=== PATIENT | male | born 1935 | race Caucasian/White ===

== ENCOUNTER 2020-02-11 11:58 | Outpatient (CLI) | payer MEDICARE, BC ==
[2020-02-11 12:31] LABS: ALBUMIN 4.2 g/dL (3.2-5.5); ALBUMIN/GLOBULIN RATIO 1.9 (1.0-2.2); BILIRUBIN,TOTAL 0.7 mg/dL (0.2-1.0); CALCIUM 9.2 mg/dL (8.5-10.3); CREATININE 1.2 mg/dL (0.6-1.2); TOTAL PROTEIN 6.4 g/dL (6.7-8.2)
[2020-02-11] MEDS ORDERED: IOVERSOL 320 100 ML VIAL IVP ONE ×2 (13:15→13:49)
--- NOTE | 2020-02-11 15:34 | CT Report ---
PROCEDURE: CHEST W INDICATIONS: L LOWER LOBE LUNG MASS CONTRAST: IV CONTRAST: Optiray 320 ml: 100 PO CONTRAST: *NO PO CONTRAST TECHNIQUE: After the administration of intravenous contrast, 5 mm thick sections acquired from the pulmonary api coleman to the posterior costophrenic angles. 7 mm thick coronal MIP reformats were acquired. For radia tion dose reduction, the following was used: automated exposure control, adjustment of mA and/or kV according to patient size. COMPARISON: None. FINDINGS: Image quality: Excellent. Lungs and pleura: No acute consolidation. There is mild ill-defined tree-in-bud opacities involving t he left lower lobe which could be infectious/inflammatory versus low-grade aspiration. Diffuse peribr onchial cuffing suggestive of nonspecific bronchitis and/or reactive airways disease. 3 mm subpleural left lower lobe pulmonary nodule on image 218/4. Additional similar-appearing subpleural nodule invo lving the anterior left upper lobe measuring 5 mm. Ill-defined left upper lobe pulmonary nodule measuring approximately 1.0 cm. No pleural effusions or pneumothorax. Mediastinum: Heart size is normal. Coronary artery calcifications. No pericardial effusion. Nonspeci fic 9 mm right hilar lymph node on image 31/3. Thoracic aorta and central pulmonary arteries are nor mal in size. Esophagus is normal in caliber. No hiatal hernia. Bones and chest wall: No suspicious bony lesions. No vertebral body compression fractures. No axil buddy or supraclavicular adenopathy by size criteria. Thyroid gland not well seen possibly atrophic. Incidental cholelithiasis. Subcentimeter renal foci which are statistically cysts, however too to ad racterize accurately and therefore technically indeterminate. Hepatic steatosis. IMPRESSION: Dominant left upper lobe pulmonary nodule measuring 1.0 cm is indeterminate however warrants continue d follow-up/surveillance since early neoplasm cannot be excluded. At minimum, chest CT in 3 months re commended. Also, a PET CT could be considered to assess malignant versus benign etiology. Additional smaller subcentimeter subpleural pulmonary nodules which warrant continued surveillance. Ill-defined small tree-in-bud nodularity involving the left lower lobe which could be infection/infla mmatory versus low-grade aspiration. Additional chronic and incidental findings as above. Reviewed by: Maksim Leung MD on 02/11/2020 3:33 PM PST Approved by: Maksim Leung MD on 02/11/2020 3:33 PM PST Station ID: [id number]
== END 2020-02-11 11:59 | disposition home or self-care (01) ==
LOC: LAB 11:58 → DI 11:59
PROVIDERS: ATTEND Family Medicine
DX: J98.4 Other disorders of lung (principal); R91.1 Solitary pulmonary nodule; Z86.73 Personal history of transient ischemic attack (TIA), and cerebral infarction without residual deficits; K44.9 Diaphragmatic hernia without obstruction or gangrene; K21.9 Gastro-esophageal reflux disease without esophagitis; D64.9 Anemia, unspecified; E03.9 Hypothyroidism, unspecified
CPT/HCPCS: 36415; 71260; 80053; Q9967

== ENCOUNTER 2020-03-11 08:57 | Outpatient (CLI) | payer MEDICARE, BC ==
[2020-03-11 11:50] LABS: BASOPHILS % (AUTO) 0.1 %; EOSINOPHILS # (AUTO) 0.3 10^3/uL (0.0-0.7); EOSINOPHILS % (AUTO) 3.2 %; LYMPHOCYTES # (AUTO) 1.6 10^3/uL (1.5-3.5); MEAN CORPUSCULAR HEMOGLOBIN 27.8 pg (27.0-31.0); MEAN CORPUSCULAR HGB CONC 31.1 g/dL (32.0-36.0); MEAN CORPUSCULAR VOLUME 89.5 fL (80.0-94.0); MEAN PLATELET VOLUME 10.3 fL (7.4-11.4); MONOCYTES # (AUTO) 0.6 10^3/uL (0.0-1.0); MONOCYTES % (AUTO) 6.4 %; NEUTROPHILS # (AUTO) 6.3 10^3/uL (1.5-6.6); NEUTROPHILS % (AUTO) 71.8 %; PLT - PLATELET COUNT 235 10^3/uL (130-450); RED BLOOD COUNT 5.03 10^6/uL (4.70-6.10); RED CELL DISTRIBUTION WIDTH 13.9 % (12.0-15.0); WHITE BLOOD COUNT 8.7 x10^3/uL (4.8-10.8)
[2020-03-11 12:25] LABS: CHOL/HDL RATIO 3.1 (<5.0); CHOLESTEROL 121 mg/dL; HDL CHOLESTEROL 39 mg/dL; LDL CHOLESTEROL,CALCULATED 71 mg/dL; LDL/HDL RATIO 1.8 (<3.6); VLDL CHOLESTEROL 11 mg/dL
[2020-03-11 12:28] LABS: FREE T3 2.58 pg/mL (2.5-3.9); THYROID STIMULATING HORMONE 1.37 uIU/mL (0.34-5.60)
== END 2020-03-11 23:59 | disposition home or self-care (01) ==
LOC: LAB.WCP 08:57
PROVIDERS: ATTEND Family Medicine
DX: K21.9 Gastro-esophageal reflux disease without esophagitis (principal); K44.9 Diaphragmatic hernia without obstruction or gangrene; E03.9 Hypothyroidism, unspecified; D64.9 Anemia, unspecified; Z86.73 Personal history of transient ischemic attack (TIA), and cerebral infarction without residual deficits
CPT/HCPCS: 36415; 80061; 83721; 84153; 84439; 84443; 84481; 85025

== ENCOUNTER 2021-12-21 09:56 | Outpatient (CLI) | payer MEDICARE, BC ==
[2021-12-21 11:55] LABS: BASOPHILS % (AUTO) 0.1 %; EOSINOPHILS # (AUTO) 0.2 10^3/uL (0.0-0.7); EOSINOPHILS % (AUTO) 1.8 %; HCT - HEMATOCRIT 43.5 % (42.0-52.0); HGB - HEMOGLOBIN 13.5 g/dL (14.0-18.0); LYMPHOCYTES # (AUTO) 2.1 10^3/uL (1.5-3.5); LYMPHOCYTES % (AUTO) 18.5 %; MEAN CORPUSCULAR HEMOGLOBIN 28.1 pg (27.0-31.0); MEAN CORPUSCULAR VOLUME 90.6 fL (80.0-94.0); MEAN PLATELET VOLUME 10.5 fL (7.4-11.4); MONOCYTES % (AUTO) 8.7 %; NEUTROPHILS % (AUTO) 70.5 %; PLT - PLATELET COUNT 210 10^3/uL (130-450); RED CELL DISTRIBUTION WIDTH 14.3 % (12.0-15.0); WHITE BLOOD COUNT 11.4 x10^3/uL (4.8-10.8)
[2021-12-21 12:44] LABS: THYROID STIMULATING HORMONE 2.62 uIU/mL (0.34-5.60)
[2021-12-21 12:54] LABS: ALBUMIN 4.2 g/dL (3.2-5.5); ALBUMIN/GLOBULIN RATIO 1.8 (1.0-2.2); ALKALINE PHOSPHATASE 55 IU/L (42-121); ALT ALANINE AMINOTRANSFERASE 20 IU/L (10-60); AST ASPARTATE AMINOTRANSFERASE 27 IU/L (10-42); BILIRUBIN,TOTAL 0.4 mg/dL (0.2-1.0); BUN - BLOOD UREA NITROGEN 21 mg/dL (6-20); CALCIUM 9.1 mg/dL (8.5-10.3); CARBON DIOXIDE - CO2 27 mmol/L (21-32); CHLORIDE 109 mmol/L (101-111); CHOL/HDL RATIO 2.2 (<5.0); CHOLESTEROL 99 mg/dL; CREATININE 1.3 mg/dL (0.6-1.2); GFR - MDRD 52 (>89); GLUCOSE 89 mg/dL (70-100); HDL CHOLESTEROL 45 mg/dL; POTASSIUM 5.1 mmol/L (3.5-5.0); SODIUM 141 mmol/L (135-145); TOTAL PROTEIN 6.6 g/dL (6.7-8.2); TRIGLYCERIDES 29 mg/dL
== END 2021-12-21 09:57 | disposition home or self-care (01) ==
LOC: LAB.N 09:56
PROVIDERS: ATTEND Family Medicine
DX: E03.9 Hypothyroidism, unspecified (principal); K22.2 Esophageal obstruction; K21.9 Gastro-esophageal reflux disease without esophagitis; D64.9 Anemia, unspecified
CPT/HCPCS: 36415; 80053; 80061; 83721; 84443; 85025

== ENCOUNTER 2023-03-08 08:59 | Outpatient (CLI) | payer MEDICARE, BC ==
[2023-03-08 12:20] LABS: BASOPHILS % (AUTO) 0.1 %; EOSINOPHILS # (AUTO) 0.3 10^3/uL (0.0-0.7); EOSINOPHILS % (AUTO) 3.8 %; HCT - HEMATOCRIT 45.3 % (42.0-52.0); HGB - HEMOGLOBIN 14.2 g/dL (14.0-18.0); LYMPHOCYTES # (AUTO) 2.2 10^3/uL (1.5-3.5); LYMPHOCYTES % (AUTO) 25.7 %; MEAN CORPUSCULAR HEMOGLOBIN 28.3 pg (27.0-31.0); MEAN CORPUSCULAR HGB CONC 31.3 g/dL (32.0-36.0); MEAN CORPUSCULAR VOLUME 90.2 fL (80.0-94.0); MONOCYTES # (AUTO) 0.6 10^3/uL (0.0-1.0); MONOCYTES % (AUTO) 6.8 %; NEUTROPHILS # (AUTO) 5.4 10^3/uL (1.5-6.6); NEUTROPHILS % (AUTO) 63.2 %; PLT - PLATELET COUNT 227 10^3/uL (130-450); RED BLOOD COUNT 5.02 10^6/uL (4.70-6.10); RED CELL DISTRIBUTION WIDTH 14.8 % (12.0-15.0); WHITE BLOOD COUNT 8.5 x10^3/uL (4.8-10.8)
[2023-03-08 13:48] LABS: ALBUMIN 4.4 g/dL (3.2-5.5); ALBUMIN/GLOBULIN RATIO 1.9 (1.0-2.2); ALKALINE PHOSPHATASE 61 IU/L (42-121); ALT ALANINE AMINOTRANSFERASE 13 IU/L (10-60); AST ASPARTATE AMINOTRANSFERASE 20 IU/L (10-42); BILIRUBIN,TOTAL 0.5 mg/dL (0.2-1.0); BUN - BLOOD UREA NITROGEN 15 mg/dL (6-20); CALCIUM 9.7 mg/dL (8.5-10.3); CARBON DIOXIDE - CO2 28 mmol/L (21-32); CHLORIDE 104 mmol/L (101-111); CHOL/HDL RATIO 3.6 (<5.0); CHOLESTEROL 175 mg/dL; CREATININE 1.4 mg/dL (0.6-1.3); GFR - MDRD 48 (>89); GLUCOSE 97 mg/dL (74-104); HDL CHOLESTEROL 48 mg/dL; LDL CHOLESTEROL,CALCULATED 108 mg/dL; LDL/HDL RATIO 2.3 (<3.6); POTASSIUM 4.6 mmol/L (3.5-4.5); SODIUM 139 mmol/L (135-145); TOTAL PROTEIN 6.7 g/dL (6.4-8.9); TRIGLYCERIDES 95 mg/dL (48-352); VLDL CHOLESTEROL 19 mg/dL
[2023-03-08 14:21] LABS: THYROID STIMULATING HORMONE 47.34 uIU/mL (0.34-5.60)
== END 2023-03-08 09:00 | disposition home or self-care (01) ==
LOC: LAB.N 08:59
PROVIDERS: ATTEND Family Medicine
DX: E78.00 Pure hypercholesterolemia, unspecified (principal); D64.9 Anemia, unspecified; E03.9 Hypothyroidism, unspecified; Z79.899 Other long term (current) drug therapy
CPT/HCPCS: 36415; 80053; 80061; 83721; 84439; 84443; 85025

== ENCOUNTER 2023-03-19 12:28 | Outpatient (CLI) | payer MEDICARE, BC ==
[2023-03-19 18:22] LABS: THYROID STIMULATING HORMONE 25.74 uIU/mL (0.34-5.60)
== END 2023-03-19 12:29 | disposition home or self-care (01) ==
LOC: LAB.N 12:28
PROVIDERS: ATTEND Family Medicine
DX: E03.9 Hypothyroidism, unspecified (principal)
CPT/HCPCS: 36415; 84439; 84443